=== PATIENT | male | born 1985 | race American Indian/Alaskan Native ===

== ENCOUNTER 2016-05-19 09:16 | Emergency (ER) | payer SELFPAY ==
[2016-05-19 10:20] VITALS: BP 132/88
--- NOTE | 2016-05-19 11:37 | Emergency Department Report ---
- General Chief Complaint: Upper Respiratory Infection Stated Complaint: COUGH/CONGESTION/CHILLS 2 WKS Time Seen by Provider: 05/19/16 11:33 Source: patient Mode of arrival: Ambulatory Limitations: No Limitations - History of Present Illness Initial Comments: Patient reports cold-like symptoms such as body aches, fever, chills, productive cough and nasal congestion that started 2 weeks ago. MD Complaint: fever, cough, nasal congestion Onset/Timin -: week(s) Severity: severe Severity scale (0 -10): 8 Quality: aching Consistency: constant Improves With: nothing Worsens With: activity Context: sick contacts Associated Symptoms: fever, chills, myalgias, nasal congestion, cough Treatments Prior to Arrival: "cold medicine" - Related Data Previous Rx's Medication Instructions Recorded Last Taken Type Amoxicillin [Trimox CAP] 500 mg PO Q8H #21 capsule 03/20/13 Unknown Rx Ibuprofen [Motrin] 800 mg PO TID PRN #14 tablet 03/20/13 Unknown Rx Benzonatate [Tessalon Perles] 100 mg PO Q8HR #12 capsule 05/19/16 Unknown Rx Cetirizine HCl [ZyrTEC] 10 mg PO DAILY #30 capsule 05/19/16 Unknown Rx Ibuprofen [Motrin 800 MG tab] 800 mg PO Q8HR PRN #30 tablet 05/19/16 Unknown Rx Allergies Allergy/AdvReac Type Severity Reaction Status Date / Time No Known Allergies Allergy Unverified 01/02/14 12:54 ED Review of Systems ROS: Stated complaint: COUGH/CONGESTION/CHILLS 2 WKS Other details as noted in HPI Constitutional: chills. denies: diaphoresis, malaise, weakness Eyes: denies: eye pain, eye discharge, vision change ENT: throat pain, congestion (nasal). denies: ear pain, dental pain, hearing loss, epistaxis Respiratory: cough (productive). denies: orthopnea, shortness of breath, SOB with exertion, SOB at rest, stridor, wheezing Cardiovascular: denies: chest pain, palpitations, dyspnea on exertion, orthopnea , edema, syncope, paroxysmal nocturnal dyspnea Gastrointestinal: denies: abdominal pain, nausea, vomiting, diarrhea, constipation Musculoskeletal: denies: back pain, joint swelling, arthralgia, myalgia Skin: denies: rash, lesions, change in color, change in hair/nails, pruritus Neurological: denies: headache, weakness, numbness, paresthesias, confusion, abnormal gait, vertigo ED Past Medical Hx - Social History Smoking Status: Light Tobacco Smoker Substance Use Type: None - Medications Home Medications: Home Medications Medication Instructions Recorded Confirmed Last Taken Type Amoxicillin [Trimox CAP] 500 mg PO Q8H #21 capsule 03/20/13 Unknown Rx Ibuprofen [Motrin] 800 mg PO TID PRN #14 tablet 03/20/13 Unknown Rx Benzonatate [Tessalon Perles] 100 mg PO Q8HR #12 capsule 05/19/16 Unknown Rx Cetirizine HCl [ZyrTEC] 10 mg PO DAILY #30 capsule 05/19/16 Unknown Rx Ibuprofen [Motrin 800 MG tab] 800 mg PO Q8HR PRN #30 tablet 05/19/16 Unknown Rx ED Physical Exam - General Limitations: No Limitations General appearance: alert, in no apparent distress - Head Head exam: Present: atraumatic, normocephalic, normal inspection - Eye Eye exam: Present: normal appearance, PERRL, EOMI Pupils: Present: normal accommodation - ENT ENT exam: Present: normal exam, normal orophraynx, mucous membranes moist, TM's normal bilaterally, normal external ear exam, other (swelling to the nasal turbinates). Absent: mucous membranes dry - Expanded ENT Exam Expanded Ear exam: Present: normal external inspection. Absent: auricular hematoma, auricular trauma TM/Canal exam: Mastoid Tenderness: Left TM Mouth exam: Present: normal external inspection, tongue normal. Absent: drooling, trismus, muffled voice, tongue elevation, laceration Teeth exam: Present: normal inspection Throat exam: Positive: normal inspection. Negative: tonsillar erythema, tonsillomegaly, tonsillar exudate, R peritonsillar mass, L peritonsillar mass - Neck Neck exam: Present: normal inspection, full ROM. Absent: tenderness, meningismus, lymphadenopathy, thyromegaly - Respiratory Respiratory exam: Present: normal lung sounds bilaterally. Absent: respiratory distress, wheezes, rales, rhonchi, stridor, chest wall tenderness, accessory muscle use, decreased breath sounds, prolonged expiratory - Cardiovascular Cardiovascular Exam: Present: regular rate, normal rhythm, normal heart sounds. Absent: systolic murmur, diastolic murmur, rubs, gallop, clicks, JVD, S3, S4 - GI/Abdominal GI/Abdominal exam: Present: soft, normal bowel sounds - Back Exam Back exam: Present: normal inspection, full ROM. Absent: CVA tenderness (R), CVA tenderness (L) - Neurological Exam Neurological exam: Present: alert, oriented X3, CN II-XII intact, normal gait, reflexes normal. Absent: motor sensory deficit - Skin Skin exam: Present: warm, dry, intact, normal color. Absent: rash ED Course Vital Signs 05/19/16 10:17 Temperature 98.3 F Pulse Rate 91 H Respiratory 18 Rate Blood Pressure 132/88 O2 Sat by Pulse 100 Oximetry ED Medical Decision Making - Lab Data Vital Signs 05/19/16 10:17 Temperature 98.3 F Pulse Rate 91 H Respiratory 18 Rate Blood Pressure 132/88 O2 Sat by Pulse 100 Oximetry - Medical Decision Making During the course of ED, all other systems are unremarkable except for documentation in HPI. Patient sent home with prescriptions for Ibuprofen, Tessalon Perles and Zyrtec, instructed to follow with selector referrals given at discharge, he verbalize understanding - Differential Diagnosis Upper respiratory infection, Rhinitis Critical care attestation.: If time is entered above; I have spent that time in minutes in the direct care of this critically ill patient, excluding procedure time. ED Disposition Clinical Impression: Upper respiratory infection Qualifiers: URI type: unspecified viral URI Qualified Code(s): J06.9 - Acute upper respiratory infection, unspecified; B97.89 - Other viral agents as the cause of diseases classified elsewhere Disposition: DISCHARGED TO HOME OR SELFCARE Is pt being admited?: No Does the pt Need Aspirin: No Condition: Stable Instructions: Upper Respiratory Infection (ED) Additional Instructions: Take medication as directed. Follow up with selective referrals given at discharge. Prescriptions: Ibuprofen [Motrin 800 MG tab] 800 mg PO Q8HR PRN #30 tablet PRN Reason: Pain Benzonatate [Tessalon Perles] 100 mg PO Q8HR #12 capsule Cetirizine HCl [ZyrTEC] 10 mg PO DAILY #30 capsule Referrals: PRIMARY CARE,MD [Primary Care Provider] - 3-5 Days [facility] [Outside] - 3-5 Days Forms: Work/School Release Form(ED), Accompanied Note Time of Disposition: 11:38
== END 2016-05-19 11:56 | disposition home or self-care (01) ==
LOC: ED 09:16
DX: J06.9 Acute upper respiratory infection, unspecified (principal); B97.89 Other viral agents as the cause of diseases classified elsewhere; F17.200 Nicotine dependence, unspecified, uncomplicated
CPT/HCPCS: 99282

== ENCOUNTER 2016-12-06 19:03 | Emergency (ER) | payer SELFPAY ==
[2016-12-06] MEDS ORDERED: ZOFRAN IV ONE (20:29)
[2016-12-06] MEDS ORDERED: MORPHINE IV ONE (20:29)
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
[2016-12-06 21:07] LABS: Basophils % (Auto) 1.2 % (0.0-1.8); Eosinophils % (Auto) 4.7 % (0.0-4.3); Hematocrit 46.8 % (35.5-45.6); Hemoglobin 15.5 gm/dl (11.8-15.2); Mean Corpuscular HGB Conc 33 % (32-34); Mean Corpuscular Hemoglobin 32 pg (28-32); Mean Corpuscular Volume 96 fl (84-94); Platelet Count 150 K/mm3 (140-440); Red Cell Distribution Width 12.9 % (13.2-15.2); White Blood Count 11.9 K/mm3 (4.5-11.0)
[2016-12-06 21:21] LABS: INR 1.08 (0.87-1.13)
[2016-12-06 21:22] LABS: Partial Thromboplastin Time 27.2 Sec. (24.2-36.6)
[2016-12-06 21:27] LABS: Alanine Aminotransferase 14 units/L (7-56); Albumin 4.2 g/dL (3.9-5); Albumin/Globulin Ratio 1.1 %; Alkaline Phosphatase 60 units/L (35-129); Anion Gap 21 mmol/L; Blood Urea Nitrogen 9 mg/dL (9-20); Calcium 9.3 mg/dL (8.4-10.2); Carbon Dioxide 20 mmol/L (22-30); Chloride 100.3 mmol/L (98-107); Glucose 82 mg/dL (75-100); Potassium 3.3 mmol/L (3.6-5.0); Sodium 138 mmol/L (137-145); Total Protein 8.1 g/dL (6.3-8.2)
[2016-12-06] MEDS ORDERED: NACL ONE (21:28)
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
[2016-12-07 00:11] VITALS: BP 144/90
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
--- NOTE | 2016-12-07 07:33 | XRay Report ---
LUMBOSACRAL SPINE, 3 VIEWS: History: Back pain Findings: The vertebral bodies, disk spaces and posterior elements are intact. No compression deformity or malalignment. The SI joints are symmetric and unremarkable. Impression: 1. No evidence for acute injury to the lumbar spine.
== END 2016-12-07 00:11 ==
LOC: ED 19:03
DX: S09.90XA Unspecified injury of head, initial encounter (principal); S29.012A Strain of muscle and tendon of back wall of thorax, initial encounter; Z72.0 Tobacco use; V49.9XXA Car occupant (driver) (passenger) injured in unspecified traffic accident, initial encounter; Y93.89 Activity, other specified; Y99.9 Unspecified external cause status; Y92.410 Unspecified street and highway as the place of occurrence of the external cause
CPT/HCPCS: 36415; 70450; 72072; 72100; 72128; 74177; 80053; 85025; 85610; 85730; 86850; 86900; 86901; 96374; 96375; 99285; J2270; J2405; Q9967

== ENCOUNTER 2017-12-19 23:49 | Emergency (ER) | payer SELFPAY ==
[2017-12-20 02:55] LABS: Bilirubin,Urine NEG (Negative); Blood,Urine NEG (Negative); Color,Urine Yellow (Yellow); Mucus,Urine 2+ /HPF; Protein,Urine <15 mg/dL mg/dL (Negative)
--- NOTE | 2017-12-20 06:56 | Ultrasound Report ---
FINAL REPORT EXAM: US TESTICULAR DOPPLER COMP HISTORY: swollen scrotum TECHNIQUE: Routine imaging was obtained of the scrotum. Doppler interrogation of both testicles was obtained. FINDINGS: The right testicle is normal size contour blood flow and echotexture measuring 5.1 cm x 2.4 cm x 4.1 cm. The right epididymis is enlarged and very vascular measuring 2.1 cm x 1.1 cm x 1.5 cm. There is no evidence of right-sided hydrocele. The left testicle is normal size contour blood flow and echotexture measuring 4.8 cm x 2 cm x 3.3 cm. The left epididymis appears normal in size and blood flow. There is a very small left-sided hydrocele. IMPRESSION: Enlarged right epididymis with increased vascularity compatible with right-sided epididymitis. No evidence of testicular torsion or neoplasia. Very small left-sided hydrocele.
[2017-12-20 07:57] VITALS: BP 129/69
[2017-12-20] MEDS ORDERED: FLAGYL PO ONE (10:56)
[2017-12-20] MEDS ORDERED: ZOFRAN ODT PO ONE (10:59)
[2017-12-20] MEDS ORDERED: ROCEPHIN IM ONE (10:59)
[2017-12-20] MEDS ORDERED: MOTRIN PO ONE (10:59)
[2017-12-20] MEDS ORDERED: XYLOCAINE 1% MPF 5 mL INFILTRATI ONE (10:59)
[2017-12-20] MEDS ORDERED: ZITHROMAX PO ONE (11:00)
--- NOTE | 2017-12-20 11:04 | Emergency Department Report ---
ED General Adult HPI - General Chief complaint: Urogenital-Male Stated complaint: TESTICULAR PAIN/SWOLLEN Time Seen by Provider: 12/20/17 10:35 Source: patient Mode of arrival: Ambulatory Limitations: No Limitations - History of Present Illness Initial comments: Patient complains of right testicular pain and swelling that started yesterday. Patient denies any injury or trauma to that region. He said recently his was treated for Trichomonas. Patient has no other complaints. -: Gradual Radiation: non-radiation Severity scale (0 -10): 4 Quality: dull Consistency: constant Improves with: none Worsens with: none Associated Symptoms: denies other symptoms Treatments Prior to Arrival: none - Related Data Previous Rx's Medication Instructions Recorded Last Taken Type Cyclobenzaprine [Flexeril] 10 mg PO TID PRN #10 tablet 12/06/16 Unknown Rx HYDROcodone/APAP 5-325 [[place] 1 - 2 each PO Q6HR PRN #10 tablet 12/06/16 Unknown Rx 5/325] Ibuprofen [Motrin 800 MG tab] 800 mg PO Q8HR PRN #10 tablet 12/06/16 Unknown Rx Ibuprofen [Motrin] 800 mg PO Q8HR PRN #30 tablet 12/20/17 Unknown Rx Tramadol HCl [Ultram] 50 mg PO Q6HR #20 tablet 12/20/17 Unknown Rx levoFLOXacin [Levaquin TAB] 500 mg PO QDAY #7 tablet 12/20/17 Unknown Rx Allergies Allergy/AdvReac Type Severity Reaction Status Date / Time No Known Allergies Allergy Unverified 01/02/14 12:54 ED Review of Systems ROS: Stated complaint: TESTICULAR PAIN/SWOLLEN Other details as noted in HPI Comment: All other systems reviewed and negative Constitutional: denies: chills, fever Eyes: denies: eye pain, eye discharge, vision change ENT: denies: ear pain, throat pain Respiratory: denies: cough, shortness of breath, wheezing Cardiovascular: denies: chest pain, palpitations Endocrine: no symptoms reported Gastrointestinal: denies: abdominal pain, nausea, diarrhea Genitourinary: testicular pain. denies: urgency, dysuria Musculoskeletal: denies: back pain, joint swelling, arthralgia Skin: denies: rash, lesions Neurological: denies: headache, weakness, paresthesias Psychiatric: denies: anxiety, depression Hematological/Lymphatic: denies: easy bleeding, easy bruising ED Past Medical Hx - Past Medical History Previous Medical History?: No - Surgical History Past Surgical History?: No - Social History Smoking Status: Current Every Day Smoker Substance Use Type: None - Medications Home Medications: Home Medications Medication Instructions Recorded Confirmed Last Taken Type Cyclobenzaprine [Flexeril] 10 mg PO TID PRN #10 tablet 12/06/16 Unknown Rx HYDROcodone/APAP 5-325 [[place] 1 - 2 each PO Q6HR PRN #10 tablet 12/06/16 Unknown Rx 5/325] Ibuprofen [Motrin 800 MG tab] 800 mg PO Q8HR PRN #10 tablet 12/06/16 Unknown Rx Ibuprofen [Motrin] 800 mg PO Q8HR PRN #30 tablet 12/20/17 Unknown Rx Tramadol HCl [Ultram] 50 mg PO Q6HR #20 tablet 12/20/17 Unknown Rx levoFLOXacin [Levaquin TAB] 500 mg PO QDAY #7 tablet 12/20/17 Unknown Rx ED Physical Exam - General Limitations: No Limitations General appearance: alert, in no apparent distress - Head Head exam: Present: atraumatic, normocephalic - Eye Eye exam: Present: normal appearance - ENT ENT exam: Present: mucous membranes moist - Neck Neck exam: Present: normal inspection - Respiratory Respiratory exam: Present: normal lung sounds bilaterally. Absent: respiratory distress - Cardiovascular Cardiovascular Exam: Present: regular rate, normal rhythm. Absent: systolic murmur, diastolic murmur, rubs, gallop - GI/Abdominal GI/Abdominal exam: Present: soft, normal bowel sounds. Absent: distended, tenderness - Rectal Rectal exam: Present: deferred - exam: Present: other (patient deferred exam ) - Extremities Exam Extremities exam: Present: normal inspection - Back Exam Back exam: Present: normal inspection - Neurological Exam Neurological exam: Present: alert, oriented X3 - Psychiatric Psychiatric exam: Present: normal affect, normal mood - Skin Skin exam: Present: warm, dry, intact, normal color. Absent: rash ED Course Vital Signs 12/20/17 12/20/17 00:38 07:47 Temperature 99.2 F 98.0 F Pulse Rate 93 H 89 Respiratory 18 20 Rate Blood Pressure 138/82 129/69 O2 Sat by Pulse 99 100 Oximetry ED Medical Decision Making - Medical Decision Making Discussed results and plan of care with patient Critical care attestation.: If time is entered above; I have spent that time in minutes in the direct care of this critically ill patient, excluding procedure time. ED Disposition Clinical Impression: Epididymitis Disposition: TO HOME OR SELFCARE Is pt being admited?: No Does the pt Need Aspirin: No Condition: Stable Instructions: Epididymitis (ED) Additional Instructions: return if worse Prescriptions: Ibuprofen [Motrin] 800 mg PO Q8HR PRN #30 tablet PRN Reason: pain levoFLOXacin [Levaquin TAB] 500 mg PO QDAY #7 tablet Tramadol HCl [Ultram] 50 mg PO Q6HR #20 tablet Referrals: PRIMARY CARE, [Primary Care Provider] - 3-5 Days Forms: STI Treatment and Prevention Time of Disposition: 11:04
== END 2017-12-20 11:37 | disposition home or self-care (01) ==
LOC: ED 23:49
DX: N45.1 Epididymitis (principal); F17.200 Nicotine dependence, unspecified, uncomplicated
CPT/HCPCS: 81001; 93975; 96372; 99284; J0696; Q0162

== ENCOUNTER 2018-12-01 15:22 | Emergency (ER) | payer SELFPAY ==
[2018-12-01 15:33] VITALS: BP 147/84
--- NOTE | 2018-12-01 15:40 | Emergency Department Report ---
Blank Doc - Documentation Documentation: This is a 33-year-old male that presents with subjective fever and "lumps in n justin". This initial assessment/diagnostic orders/clinical plan/treatment(s) is/are subject to change based on patient's health status, clinical progression and re- assessment by fellow clinical providers in the ED. Further treatment and workup at subsequent clinical providers discretion. Patient/guardians urged not to elope from the ED as their condition may be serious if not clinically assessed and managed. Initial orders include: 1- Patient sent to [facility] for further evaluation and treatment
[2018-12-01] MEDS ORDERED: IBUPROFEN PO ONE (17:47)
[2018-12-01 18:22] LABS: Basophils # (Auto) 0.1 K/mm3 (0.0-0.1); Basophils % (Auto) 0.8 % (0.0-1.8); Eosinophils # (Auto) 0.4 K/mm3 (0.0-0.4); Eosinophils % (Auto) 4.3 % (0.0-4.3); Hematocrit 43.9 % (35.5-45.6); Hemoglobin 14.6 gm/dl (11.8-15.2); Lymphocytes # (Auto) 2.2 K/mm3 (1.2-5.4); Lymphocytes % (Auto) 22.3 % (13.4-35.0); Mean Corpuscular HGB Conc 33 % (32-34); Mean Corpuscular Volume 95 fl (84-94); Platelet Count 168 K/mm3 (140-440); Red Blood Count 4.63 M/mm3 (3.65-5.03)
[2018-12-01 18:44] LABS: BUN/Creatinine Ratio 10; Blood Urea Nitrogen 10 mg/dL (9-20); Calcium 8.8 mg/dL (8.4-10.2); Hemolysis Index 10
[2018-12-01 18:48] LABS: Erythrocyte Sedimentation Rate 13 mm/Hr (0-20)
--- NOTE | 2018-12-01 19:06 | Emergency Department Report ---
ED Neck Pain HPI Chief Complaint: Neck Pain/Injury Stated Complaint: NECK PAIN Time Seen by Provider: 12/01/18 15:39 Duration: 3 Days Neck Pain Location: Posterior Neck Severity: severe Mechanism: Unsure Symptoms: Yes Pain with Movement Other History: 33-year-old -Hung[place] male presents to the emergency room complaining of fever and lump and pain in neck for 2-3 days. Patient has taken nothing for pain. Patient reports that he had is here and he thought that it may have been too tight and took them apart. Patient states after he took them a loose pain has gotten worse. Patient reports he had a fever yesterday of 102. Patient denies any past medical history takes no medications on a daily basis no surgeries. ED Review of Systems ROS: Stated complaint: NECK PAIN Other details as noted in HPI Comment: All other systems reviewed and negative ED Past Medical Hx - Past Medical History Previous Medical History?: No - Surgical History Past Surgical History?: No - Social History Smoking Status: Light Tobacco Smoker Substance Use Type: None - Medications Home Medications: Home Medications Medication Instructions Recorded Confirmed Last Taken Type Cyclobenzaprine [Flexeril] 10 mg PO TID PRN #10 tablet 12/06/16 Unknown Rx HYDROcodone/APAP 5-325 [[place] 1 - 2 each PO Q6HR PRN #10 tablet 12/06/16 Unknown Rx 5/325] Ibuprofen [Motrin 800 MG tab] 800 mg PO Q8HR PRN #10 tablet 12/06/16 Unknown Rx Tramadol HCl [Ultram] 50 mg PO Q6HR #20 tablet 12/20/17 Unknown Rx levoFLOXacin [Levaquin TAB] 500 mg PO QDAY #7 tablet 12/20/17 Unknown Rx Ibuprofen [Motrin 800 MG tab] 800 mg PO Q8HR PRN #30 tablet 12/01/18 Unknown Rx Neck Pain Exam - Exam General: Vital signs noted. No distress. Alert and acting appropriately. HEENT: Yes Scalp Tenderness (Nape of the scalp on the right side) Neck Pain: Yes Pain with Extension, Yes Pain with Flexion, No Midline Tenderness, No Right Paraspinal Tenderness, No Right Trapezius Tenderness, No Left Trapezius Tenderness, No Pain with Rotation Right, No Pain with Rotation Left, No pain with R Lateral Flexion, No Pain with L Lateral Flexion Heart: Yes Regular, No Murmur Back: No Thoracic Tenderness, No Lumbar Tenderness Neuro: No Numbness, No Weakness, No Normal Reflexes, No Radicular Deficits ED Course Vital Signs 12/01/18 12/01/18 15:31 17:03 Temperature 98.9 F Pulse Rate 96 H Respiratory 18 17 Rate Blood Pressure 147/84 O2 Sat by Pulse 100 Oximetry ED Medical Decision Making - Lab Data Result diagrams: 12/01/18 18:05 12/01/18 18:05 Laboratory Tests 12/01/18 12/01/18 12/01/18 18:05 18:05 18:05 WBC 9.7 RBC 4.63 Hgb 14.6 Hct 43.9 MCV 95 H MCH 32 MCHC 33 RDW 13.0 L Plt Count 168 Lymph % (Auto) 22.3 Foster % (Auto) 10.0 H Eos % (Auto) 4.3 Baso % (Auto) 0.8 Lymph # 2.2 Foster # 1.0 H Eos # 0.4 Baso # 0.1 Seg Neutrophils % 62.6 Seg Neutrophils # 6.1 ESR 13 Sodium 138 Potassium 4.1 Chloride 101.0 Carbon Dioxide 28 Anion Gap 13 BUN 10 Creatinine 1.0 Estimated GFR > 60 BUN/Creatinine Ratio 10 Glucose 103 H Lactic Acid 1.00 Calcium 8.8 - Medical Decision Making 33-year-old -Hung[place] male presents to the emergency room complaining of fever and lump and pain in neck for 2-3 days. Patient has taken nothing for pa in. Patient reports that he had is here and he thought that it may have been too tight and took them apart. Patient states after he took them a loose pain has gotten worse. Patient reports he had a fever yesterday of 102. Patient denies any past medical history takes no medications on a daily basis no surgeries. Critical care attestation.: If time is entered above; I have spent that time in minutes in the direct care of this critically ill patient, excluding procedure time. ED Disposition Clinical Impression: Head and neck lymphadenopathy Disposition: - TO HOME OR SELFCARE Is pt being admited?: No Does the pt Need Aspirin: No Condition: Stable Instructions: Lymphadenopathy (ED) Additional Instructions: Take ibuprofen as prescribed. If his symptoms persist or gets worse and follow up with primary care provider. Prescriptions: Ibuprofen [Motrin 800 MG tab] 800 mg PO Q8HR PRN #30 tablet PRN Reason: pain Referrals: GILBERTO CARDOZO MD [Primary Care Provider] - 3-5 Days Forms: Work/School Release Form(ED)
== END 2018-12-01 19:23 | disposition home or self-care (01) ==
LOC: ED 15:22
DX: R59.0 Localized enlarged lymph nodes (principal); F17.200 Nicotine dependence, unspecified, uncomplicated; Z79.899 Other long term (current) drug therapy
CPT/HCPCS: 36415; 80048; 82140; 85025; 85652; 99283